=== PATIENT | male | born 1970 | race Caucasian/White ===

== ENCOUNTER 2025-04-03 10:39 | Emergency (ER) | payer OTHER, SELFPAY ==
--- NOTE | ~2025-04-03 | XR_ITS ---
Examination: XR knee RT 3V, XR knee LT 3V Clinical History: pain/swelling Comparison: None Technique: 3 views right knee, 3 views left knee Findings/impression: Right knee: 1. No fracture, dislocation, effusion, or significant degenerative changes. 2. Mild vacuum phenomenon medial compartment, usually of no consequence. Left knee: 1. No fracture, dislocation, or significant degenerative changes. 2. Small joint effusion not excluded. 3. Mild vacuum phenomenon radial compartment, usually of no consequence. Reviewed, dictated and finalized at location [facility]
[2025-04-03 10:57] VITALS: BP 131/102; PULSE 99; RESP 18; TEMP 36.7; O2SAT 97
[2025-04-03] MEDS: Please add drug allergy info to patient profile. 1 EACH XX (11:11)
[2025-04-03] MEDS: chlordiazePOXIDE (*CRX) 25 MG CAPSULE 50 MG PO (11:14)
[2025-04-03] MEDS: SODIUM CHLORIDE 0.9% IV 1,000 ML 999 ML IV CONT (11:14)
[2025-04-03 11:23] LABS: Hematocrit 43.4 % (42.0-52.0); Hemoglobin 15.2 g/dL (14.0-18.0); Immature Granulocyte Percent A 0.4 % (0-0.5); Lymphocytes Absolute Auto 4.66 K/mm3 (0.9-3.2); Mean Corpuscular HGB Conc 35.0 g/dl (32-36); Mean Corpuscular Hemoglobin 31.7 pg (26-34); Mean Corpuscular Volume 90.4 fl (80-100); Nucleated Red Blood Cells Absolute Auto 0.000 K/mm3 (0.0-0.012); Nucleated Red Blood Cells Perc 0.0 % (0.0-0.2); Platelet Count Result 159 k/mm3 (150-375); Red Blood Count 4.80 M/mm3 (4.6-6.20); White Blood Count 11.2 K/mm3 (4.5-10.0)
--- OUTSIDE RECORDS SUMMARY | 2025-04-03 11:30 | XMS_ITS | Clinical Summary ---
Author Organization [facility] Address [address] [place] [address] Care Team Providers Care Freelance Director Name Role Phone No, Physician Primary Care Provider [phone] Allergies No known active allergies Social History Tobacco Use Types Packs/Day Years Used Date Smoking Tobacco: Never Assessed Personal Safety Answer Date Recorded Have you ever been in or are you currently in a harmful physical or emotional relationship or is someone making you feel afraid or unsafe? 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 Gender Identity Not on file Sexual Orientation Not on file Last Filed Vital Signs Vital Sign Reading Time Taken Comments Blood Pressure 163/98 01/22/2023 9:59 PM CDT Pulse 105 01/22/2023 9:59 PM CDT Temperature 36.8 C (98.2 F) 01/22/2023 9:59 PM CDT Respiratory Rate 18 01/22/2023 9:59 PM CDT Oxygen Saturation 96% 01/22/2023 9:59 PM CDT Inhaled Oxygen Concentration - - Weight 100 kg (220 lb 7.4 oz) 01/22/2023 1:24 PM CDT Height 177.8 cm (5' 10) 10/23/2019 9:57 PM CDT Body Mass Index 31.63 10/23/2019 9:57 PM CDT Plan of Treatment Health Maintenance Due Date Last Done Comments Colon Cancer Screening-Colonoscopy 1972 Depression Screening 1972 Hepatitis C Screening 1972 Prostate Cancer Screening-PSA 1972 DTaP/Tdap/Td Vaccine (1 - Tdap) 08/10/1983 Hepatitis B Screening 1990 Regular Well Visit/Exam 18-64 1990 Zoster Vaccine (1 of 2) 2022 Influenza Vaccine (#1) 2025 Pneumococcal vaccine <65 Aged Out No longer eligible based on patient's age to complete this topic Insurance Member Subscriber Plan / Payer (Ef fective 2020-Present) Name:HardeepCristiano Relation to Subscriber:Self Name:Cristiano Meier [place] Payer ID:[id number] (NAIC) Type:MEDICAID RISK OTHER Address: [place] [id number] Care Teams Freelance Director Relationship Specialty Start Date End Date No, Physician PCP - General 01/22/23
--- OUTSIDE RECORDS SUMMARY | 2025-04-03 11:30 | XMS_ITS | Clinical Summary ---
Author Organization [facility] Address [address] [place] [id number] Care Team Providers Care Calibration Engineer Name Role Phone Unavailable Primary Care Provider Unavailabl e Social History Tobacco Use Types Packs/Day Years Used Date Smoking Tobacco: Never Assessed Sex and Gender Information Value Date Recorded Sex Assigned at Not on file Legal Sex Male 5:05 PM CDT Gender Identity Not on file Sexual Orientation Not on file Plan of Treatment Health Maintenance Due Date Last Done Comments Colorectal Cancer Screening Colonoscopy (10 Years) 1972 Annual Physical 08/10/1975 Hepatitis C 1990 DTaP, Tdap and Td Vaccines ( 1 - Tdap) 08/10/1991 Hepatitis B Vaccines (1 of 3 - 19+ 3-dose series) 08/10/1991 Pneumococcal Vaccine: 50+ Ye ars (1 of 1 - PCV) 2022 Zoster Vaccines (1 of 2) 2022 COVID-19 Vaccine ( - 2024-2 6 season) 2025 Influenza Adult (#1) 2025 Hepatitis A Vaccines Aged Out No long er eligible based on patient's age to complete this topic Meningococcal B Vaccine Aged Out No l onger eligible based on patient's age to complete this topic Meningococcal Vaccine Aged Out No ritesh zoraida eligible based on patient's age to complete this topic RSV Immunizations Under 20 Months Aged Out No longer eligible based on patient's age to complete this topic
--- OUTSIDE RECORDS SUMMARY | 2025-04-03 11:30 | XMS_ITS | Clinical Summary ---
Author Organization [facility] Address [address] [place] [address] Care Team Providers Care Break Up Worker Name Role Phone Unavailable Primary Care Provider Unavailabl e Source Comments [facility],non-owned Affiliates and Associated Physician Practices is amultiple site organization consisting of ambulatory clinics and hospital sitesin [place], [place], [place] and [place]. This disclosure is being madepursuant to the Care Everywhere program and may not contain all information available regarding this patient. Last updated 18.[facility] Allergies No known active allergies Medications * Be aware that medications may not be up to date on this document. Alwaysverify current medications with the patient. 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 Gender Identity Not on file Sexual Orientation Not on file Last Filed Vital Signs Vital Sign Reading Time Taken Comments Blood Pressure 141/84 03/17/2023 6:19 PM WINDOWS LAPTOP TECHNICIAN Pulse 98 03/17/2023 8:33 PM WINDOWS LAPTOP TECHNICIAN Temperature 36.8 C (98.2 F) 03/17/2023 6:19 PM WINDOWS LAPTOP TECHNICIAN Respiratory Rate 20 03/17/2023 6:19 PM WINDOWS LAPTOP TECHNICIAN Oxygen Saturation 94% 03/17/2023 6:19 PM WINDOWS LAPTOP TECHNICIAN Inhaled Oxygen Concentration - - Weight 90.7 kg (200 lb) 03/17/2023 6:19 PM WINDOWS LAPTOP TECHNICIAN Height 179.1 cm (5' 10.5) 03/17/2023 6:19 PM CS T Body Mass Index 28.29 03/17/2023 6:19 PM WINDOWS LAPTOP TECHNICIAN Plan of Treatment Health Maintenance Due Date Last Done Comments COLOGUARD (AGES 45-75) - COL ON CA SCREENING 1972 COLON MONITORING 1972 COLONOSCOPY - COLON CA SCREENING 1972 CT COLONOGRAPHY - COLON CA SCREENING 1972 Colorectal Cancer Screening 1972 FIT - COLON CA SCREENING 1972 FLEX SIG - COLON CA SCREENING 1972 LIPID TESTING 1972 HIV SCREENING 08/10/1987 HEPATITIS C SCREENING 08/05/1990 DTAP/TDAP/TD VACCINES (1 - Tdap) 08/10/1991 HEPATITIS B VACCINE (1 of 3 - 19+ 3-dose series) 08/10/1991 PNEUMOCOCCAL VACCINE 50+ (1 of 2 - PCV) 08/10/1991 ZOSTER VACCINE (1 of 2) 2022 DEPRESSION SCREENING 05/05/2024 COVID-19 VACCINE (2 - 2024-2 6 season) 2025 11/12/2020 INFLUENZA VACCINE (#1) 2025 HIB VACCINE Aged Out No longer eligi ble based on patient's age to complete this topic HPV VACCINE Aged Out No longer eligi ble based on patient's age to complete this topic MENINGOCOCCAL (Group B) VACC INE SHARED DECISION-MAKING Aged Out No longer eligibl e based on patient's age to complete this topic MENINGOCOCCAL GROUPS A/C/Y/W VACCINE Aged Out No longer eligible b ased on patient's age to complete this topic Insurance [facility]
[2025-04-03 11:35] LABS: INR 1.1; Partial Thromboplastin Time 27.4 Seconds (22.3-36.8); Prothrombin Time 14.3 Seconds (11.1-14.7)
[2025-04-03 11:47] LABS: Alanine Aminotransferase 109 U/L (6-50); Albumin Level 4.6 g/dL (3.5-5.1); Alkaline Phosphatase 83 U/L (38-126); Anion Gap 8 mmol/L (4-12); Aspartate Amino Transferase 117 U/L (17-59); Bilirubin,Total 2.1 mg/dL (0.2-1.3); Blood Urea Nitrogen 17 mg/dL (9-20); Calcium 9.5 mg/dL (8.4-10.2); Carbon Dioxide 24 mmol/L (22-30); Chloride 106 mmol/L (98-107); Estimated CRCL calculation 123 ml/min; Estimated Glomerular Filt Rate > 60; Glucose 111 mg/dL (65-110); Lipase 462 U/L (23-300); Potassium 3.6 mmol/L (3.4-5.0); Sodium 138 mmol/L (137-145); Total Protein 8.9 g/dL (6.3-8.2)
--- NOTE | 2025-04-03 12:39 | ED_ITS ---
HPI - General Adult General Chief complaint: Extremity Injury, Lower Stated complaint: bilateral leg and knee pain and swelling Time Seen by Provider: 04/03/25 10:54 History of Present Illness HPI narrative: Patient is a 54-year-old male who presents ER with reports of knee pain. Chronic over last 40 years related to work as what he reports. No new swelling. No numbness or tingling to legs. No redness or heat. Patient is having diffuse body tremors and has not had a sip of alcohol since yesterday. This is causing him to withdrawal which is happen before. No history of withdrawal seizure. Reports he typically does well with chlordiazepoxide. Related Data Allergies Allergy/AdvReac Type Severity Reaction Status Date / Time No Known Allergies Allergy Verified 04/03/25 11:11 Review of Systems 2 Review of Systems: All systems reviewed & are unremarkable except as noted in HPI and below Constitutional: Constitutional: Reports no additional constitutional complaints Cardiovascular: Cardiovascular: Reports no additional cardiovascular complaints Respiratory: Respiratory: Reports no additional respiratory complaints Musculoskeletal: Musculoskeletal: Reports no additional musculoskeletal complaints Neurologic: Reports system reviewed and no additional complaints, except as documented PMFSH Past Medical History Medical History (Updated 04/07/25 @ 12:10 by Chris Padilla MD) Alcoholism Exam 2 Narrative: GENERAL: Anxious appearing, well-nourished, and in no acute distress. HEAD: Normocephalic, atraumatic. ENT: Mucous membranes moist. CHEST: Clear to auscultation. No respiratory distress. HEART: Tachycardic and regular. Normal peripheral pulses. ABDOMEN: Soft, nontender, nondistended. EXTREMITIES: Normal range of motion. No edema. SKIN: Warm, dry, no rash. NEURO: Mildly tremulous Alert and oriented x3. PSYCH: Normal mood and affect. Course Course Emergency Course: Unremarkable exam the knees. Tremors improved with Librium. Appropriate for discharge home. Will give medication for withdrawal. Vital Signs Vital signs: Vital Signs Temperature 98.1 F 04/03/25 10:57 Pulse Rate 99 04/03/25 10:57 Respiratory Rate 18 04/03/25 10:57 Blood Pressure 131/102 H 04/03/25 10:57 Pulse Oximetry 97 04/03/25 10:57 Oxygen Delivery Room Air 04/03/25 10:57 Temperature 98.1 F 04/03/25 10:57 Pulse Rate 99 04/03/25 10:57 Respiratory Rate 18 04/03/25 10:57 Blood Pressure 131/102 H 04/03/25 10:57 Pulse Oximetry 97 04/03/25 10:57 Oxygen Delivery Room Air 04/03/25 10:57 Medical Decision Making Differential Diagnosis Differential Diagnosis: Alcohol withdrawal, gout, knee sprain, arthritis, anxiety Vital Signs Vital Signs: Vital Signs Temperature 98.1 F 04/03/25 10:57 Pulse Rate 99 04/03/25 10:57 Respiratory Rate 18 04/03/25 10:57 Blood Pressure 131/102 H 04/03/25 10:57 Pulse Oximetry 97 04/03/25 10:57 Oxygen Delivery Room Air 04/03/25 10:57 Temperature 98.1 F 04/03/25 10:57 Pulse Rate 99 04/03/25 10:57 Respiratory Rate 18 04/03/25 10:57 Blood Pressure 131/102 H 04/03/25 10:57 Pulse Oximetry 97 04/03/25 10:57 Oxygen Delivery Room Air 04/03/25 10:57 Lab Data Lab results reviewed: Yes I reviewed the patient's lab results. 04/03/25 11:17 04/03/25 11:17 Labs: Lab Results 04/03/25 Range/Units 11:17 WBC 11.2 H (4.5-10.0) K/mm3 RBC 4.80 (4.6-6.20) M/mm3 Hgb 15.2 (14.0-18.0) g/dL Hct 43.4 (42.0-52.0) % MCV 90.4 (80-100) fl MCH 31.7 (26-34) pg MCHC 35.0 (32-36) g/dl RDW 13.0 (11.5-14.5) % Plt Count 159 (150-375) k/mm3 MPV 10.9 H (7.4-10.4) fl Immature Gran % (Auto) 0.4 (0-0.5) % Neut % (Auto) 46.9 (45.5-73.1) % Lymph % (Auto) 41.6 (18.3-44.2) % [place] % (Auto) 7.0 (2.6-8.5) % Eos % (Auto) 3.2 (0-4.4) % Baso % (Auto) 0.9 (0.2-1.2) % Lymph # (Auto) 4.66 H (0.9-3.2) K/mm3 [place] # (Auto) 0.8 H (0.1-0.6) K/mm3 Eos # (Auto) 0.4 H (0-0.3) K/mm3 Baso # (Auto) 0.1 (0.0-0.1) K/mm3 Abs Immat Gran (auto) 0.05 H (0.00-0.031) K/mm3 Absolute Neuts (auto) 5.3 (1.3-6.7) K/mm3 Absolute Nucleated RBC 0.000 (0.0-0.012) K/mm3 Nucleated RBC % 0.0 (0.0-0.2) % PT 14.3 (11.1-14.7) Seconds INR 1.1 APTT 27.4 (22.3-36.8) Seconds Sodium 138 (137-145) mmol/L Potassium 3.6 (3.4-5.0) mmol/L Chloride 106 (98-107) mmol/L Carbon Dioxide 24 (22-30) mmol/L Anion Gap 8 (4-12) mmol/L BUN 17 (9-20) mg/dL Creatinine 0.62 L (0.7-1.3) mg/dL Estim Creat Clear Calc 123 ml/min Estimated GFR > 60 (59 - ) Glucose 111 H (65-110) mg/dL Calcium 9.5 (8.4-10.2) mg/dL Total Bilirubin 2.1 H (0.2-1.3) mg/dL AST 117 H (17-59) U/L ALT 109 H (6-50) U/L Alkaline Phosphatase 83 (38-126) U/L Total Protein 8.9 H (6.3-8.2) g/dL Albumin 4.6 (3.5-5.1) g/dL Lipase 462 H (23-300) U/L Imaging Data My impression: Knee x-rays bilateral: No acute process. Discharge Plan Discharge Clinical Impression: Chronic knee pain, Alcohol withdrawal Patient Disposition: Home Condition: Stable Instructions: Alcohol Withdrawal (ED) Additional Instructions: Return to the ER if you have chest pain with shortness of breath, you cannot keep down food/water, you have a seizure, or you have additional concerns. Patient Language: Congolese Prescriptions: New chlordiazepoxide HCl 25 mg capsule See Rx Instructions .ROUTE .COMPLEX PRN (Reason: alcohol withdrawal) Qty: 20 0RF Rx Instructions: 50 mg orally Q6Hr day one, 50 mg orally Q8HR day two, 50 mg orally Q12HR day 3, 50 mg orally at bedtime day 4 Follow-up/Referrals: PHYSICIAN,TAR WORKER [Primary Care Provider, Internal Medicine] Kelvin Donis MD [Physician, Family Practice] - 1 Week
== END 2025-04-03 14:15 | disposition home or self-care (01) ==
PROVIDERS: Emergency Provider Emergency Medicine
DX: M25.562 Pain in left knee (principal); M25.561 Pain in right knee; G89.29 Other chronic pain; F10.239 Alcohol dependence with withdrawal, unspecified
CPT/HCPCS: 36415; 73562; 80053; 83690; 85025; 85610; 85730; 96360; 99284; A9270; J7030